=== PATIENT | female | born 1990 | race Caucasian/White ===

== ENCOUNTER 2020-09-29 19:14 | Inpatient (IN) | payer OTHER ==
[2020-09-29 20:02] LABS: APPEARANCE,URINE CLEAR; BILIRUBIN,URINE NEGATIVE (NEGATIVE); COLOR,URINE STRAW; GLUCOSE, URINE 150 mg/dL (NEGATIVE); KETONES,URINE NEGATIVE (NEGATIVE); LEUKOCYTE ESTERASE,URINE NEGATIVE (NEGATIVE); NITRITE,URINE NEGATIVE (NEGATIVE); PROTEIN,URINE NEGATIVE (NEGATIVE); URINE SPECIFIC GRAVITY 1.008; UROBILINOGEN,URINE NEGATIVE mg/dL (<2.0)
[2020-09-29] MEDS ORDERED: RINGERS SOLUTION,LACTATED 500 ML IV ONE (20:17)
[2020-09-29 20:45] LABS: URINE AMPHETAMINES SCREEN NEGATIVE; URINE BARBITURATES SCREEN NEGATIVE; URINE BENZODIAZEPINES SCREEN NEGATIVE; URINE COCAINE SCREEN NEGATIVE; URINE MARIJUANA (THC) SCREEN NEGATIVE; URINE METHADONE SCREEN NEGATIVE; URINE PHENCYCLIDINE SCREEN NEGATIVE
[2020-09-29 20:46] LABS: ABSOLUTE EOSINOPHILS # (AUTO) 0.1 10^3/uL (0.0-0.6); ABSOLUTE LYMPHOCYTES (AUTO) 1.8 10^3/uL (0.5-4.7); ABSOLUTE MONOCYTES (AUTO) 0.8 10^3/uL (0.1-1.4); ABSOLUTE NEUT (AUTO) 7.5 10^3/uL (1.7-8.2); BASOPHILS % (AUTO) 0.2 % (0-2); EOSINOPHILS % (AUTO) 0.5 % (0-6); HEMATOCRIT 40.6 % (36.0-47.0); HEMOGLOBIN 13.5 g/dL (12.0-15.5); LYMPHOCYTES % (AUTO) 17.9 % (13-45); MEAN CORPUSCULAR HEMOGLOBIN 28.3 pg (27.0-33.4); MEAN CORPUSCULAR HGB CONC 33.4 g/dL (32.0-36.0); MEAN CORPUSCULAR VOLUME 85 fl (80-97); MONOCYTES % (AUTO) 7.6 % (3-13); PLATELET COUNT 162 10^3/uL (150-450); RED BLOOD COUNT 4.78 10^6/uL (3.72-5.28); RED CELL DISTRIBUTION WIDTH 13.8 % (11.5-14.0); SEGMENTED NEUTROPHILS % (AUTO) 73.8 % (42-78); TOTAL CELLS COUNTED % (AUTO) 100 %; WHITE BLOOD COUNT 10.2 10^3/uL (4.0-10.5)
[2020-09-29] MEDS ORDERED: MISOPROSTOL 0.2 MG TABLET ONE (21:17)
[2020-09-29] MEDS ORDERED: OXYTOCIN 10 UNIT/ML VIAL ONE (21:17)
[2020-09-29] MEDS ORDERED: OXYTOCIN/0.9 % SODIUM CHLORIDE 30 UNIT/500 ML RTUINJ ONE (21:18)
[2020-09-29] MEDS ORDERED: LIDOCAINE 1% INJ-PF (10 MG/ML) 30 ML SDV ONE (21:18)
[2020-09-29] MEDS: RINGERS SOLUTION,LACTATED 1,000 ML IV PRN (21:42)
[2020-09-30] MEDS ORDERED: NALBUPHINE HCL INJ 10 MG/1 ML AMPULE IV ONE (00:24)
[2020-09-30] MEDS ORDERED: PROMETHAZINE HCL INJ 25 MG/1 ML VIAL IV ONE (00:24)
[2020-09-30] MEDS ORDERED: NALBUPHINE HCL INJ 10 MG/1 ML AMPULE ONE (00:25)
[2020-09-30] MEDS ORDERED: PROMETHAZINE HCL INJ 25 MG/1 ML VIAL ONE (00:25)
[2020-09-30] MEDS: RINGERS SOLUTION,LACTATED 1,000 ML IV PRN ×2 (00:36→03:29)
[2020-09-30] MEDS ORDERED: FENTANYL/BUPIVACAINE/NS/PF 300 MCG/150 ML RTUINJ EPI ONE (03:14)
[2020-09-30] MEDS ORDERED: ROPIVACAINE HCL 0.2% INJ/PF (2 MG/ML) 20 ML SDV ONE (03:14)
[2020-09-30] MEDS ORDERED: EPHEDRINE SULFATE INJ 50 MG/1 ML AMPULE ONE (03:14)
[2020-09-30] MEDS ORDERED: CALCIUM CARBONATE 500 MG TAB.CHEW PO ONE (05:26)
[2020-09-30] MEDS ORDERED: OXYTOCIN/0.9 % SODIUM CHLORIDE 30 UNIT/500 ML RTUINJ IV PRN ×2 (06:00→10:09)
--- NOTE | 2020-09-30 06:57 | Admission Physical ---
Datetime Report Generated by CPN: 09/30/2020 06:57 CURRENT ADMISSION Chief Complaint: Uterine Contractions; Suspected Ruptured Membranes Indication for Induction: Not Applicable Admit Impression : Term, Intrauterine ; Active Labor; Ruptured Membranes Admit Plan: Admit to Unit; Initiate Labor Augmentation Protocol ALLERGIES Medication Allergies: No Medication Allergies: No Known Allergies (09/29/2020) Latex: No Latex Allergies OBSTETRICAL HISTORY EDC: 09/29/2020 00:00 : 1 Para: 0 Term: 0 Gestational Diabetes: No Rh Sensitization: No Incompetent Cervix: No AMADOR: No Infertility: No ART Treatment: No Uterine Anomaly: No IUGR: No Hx Previous C/S: No Macrosomia: No Hx Loss/Stillborn: No PIH: No Hx : No Placenta Previa/Abruption: No Depression/PP Depression: No PTL/PROM: No Post Hemorrhage: No Current Procedures: Ultrasound SEE RECORDS Alcohol: No Marijuana : No Cocaine: No Other Illicit Drugs: No Cigarettes: Former Smoker. 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 Surgery: No Heart Disease: No Hosp/Surgery: No Autoimmune Disorder: No Anesthetic Complications: No Kidney Disease: No Abnormal Pap Smear: No Neuro/Epilepsy: Yes Psychiatric Disorders: No Other Medical Diseases: No Hepatitis/Liver Disease: No Significant Family History: No Varicosities/Phlebitis: No Trauma/Violence : No Thyroid Dysfunction: No Medical History Comments: Migraine headaches INFECTIOUS HISTORY Gonorrhea: No Genital Herpes: No Chlamydia: No Tuberculosis: No Syphilis: No Hepatitis: No HIV/AIDS Exposure: No Rash or Viral Illness: No HPV: No PHYSICAL EXAM General: Normal HEENT: Normal Neurologic: Normal Thyroid: Normal Heart: Normal Lungs: Normal Breast: Normal Back: Normal Abdomen: Normal Genitourinary Exam: Normal Extremities: Normal DTRs: Normal Pelvic Type: Adequate Vital Signs: Reviewed VAGINAL EXAM Dilatation: 6 Effacement: 90 Station: 0 MEMBRANES Pooling: Positive Membranes: Ruptured Amniotic Fluid Color: Clear FETUS A EGA: 40.1 Monitoring: External US FHR- Baseline: 130 Variability: Moderate 6-25bpm Accelerations: 15X15 Decelerations: None FHR Category: Category I Estimated Weight (gm): 3500 Presentation: Vertex PLANS FOR LABOR AND DELIVERY Labor and Delivery: None Pain Management: Medications Feeding Preference: Breast Circumcision: Yes INFORMED CONSENT Signature: with User ID: [email or web address]
--- NOTE | 2020-09-30 09:03 | L&D Progress Notes ---
PROGRESS NOTES Datetime Report Generated by CPN: 09/30/2020 09:03 PROGRESS NOTE Comment: pushing with each contraction,seeing head with pushing, mod variability, variable decels with uc's, uc's q 4 min, Piyocin on 2 mu, Dr. Luu on unit and aware of status VAGINAL EXAM Dilatation: 6 Effacement: 90 Station: 0 LAST VAGINAL EXAM-NURSING Nursing Exam Dilitation: 10.0 Nursing Exam Effacement: 100 Nursing Exam Station: 2 Nursing Exam Contractions: irregular MEMBRANES Pooling: Positive Membranes: Ruptured Amniotic Fluid Color: Clear FETUS A : 40.1 Estimated Weight (gm): 3500 Presentation: Vertex SIGNATURE SIGNATURE: 10,[id number] Assignment: Apolonia Luu MD Signature: with User ID: Louie : with User ID: Louie
[2020-09-30] MEDS ORDERED: BENZOCAINE/MENTHOL AEROSOL SPRAY 56 ML TOP PRN (10:09)
[2020-09-30] MEDS ORDERED: MAGNESIUM HYDROXIDE SUSP 30 ML UDCUP PO PRN (10:09)
[2020-09-30] MEDS ORDERED: ACETAMINOPHEN WITH CODEINE #3 TABLET PO PRN (10:09)
[2020-09-30] MEDS ORDERED: DIBUCAINE 1% OINTMENT 28 GM TP PRN (10:09)
[2020-09-30] MEDS ORDERED: ACETAMINOPHEN 325 MG TABLET PO PRN (10:09)
[2020-09-30] MEDS ORDERED: DIPHENHYDRAMINE HCL 25 MG CAPSULE PO PRN (10:09)
[2020-09-30] MEDS ORDERED: GLYCERIN/WITCH HAZEL LEAF 1 EACH MED..WIPE TP PRN (10:09)
[2020-09-30] MEDS ORDERED: MAG HYDROX/AL HYDROX/SIMETH SUSP 30 ML UDCUP PO PRN (10:09)
[2020-09-30] MEDS ORDERED: FAMOTIDINE 20 MG TABLET PO PRN (10:09)
[2020-09-30] MEDS ORDERED: ACETAMINOPHEN 650 MG SUPP.RECT PR PRN (10:09)
[2020-09-30] MEDS ORDERED: DIPH/PERTUSS(ACELL)/TETANUS VAC/PF 0.5 ML SYR (>=10YO) IM PRN (10:09)
[2020-09-30] MEDS ORDERED: PSEUDOEPHEDRINE HCL 30 MG TABLET PO PRN (10:09)
[2020-09-30] MEDS ORDERED: MEASLES,MUMPS&RUBELLA VACC/PF 0.5 ML VIAL SUBCUT PRN (10:09)
[2020-09-30] MEDS ORDERED: VARICELLA VACC/PF (1350 UNIT/0.5 ML) 0.5 ML VIAL SUBCUT PRN (10:09)
--- NOTE | 2020-09-30 11:03 | Birth Certificate Data ---
Cert Data Datetime Report Generated by CPN: 09/30/2020 11:02 CERTIFICATE DATA 47a. Care: Yes (09/29/2020 19:58:Cyndi Brasher RN) 47b. Date of First Visit: 03/13/2020 00:00 (09/29/2020 19:58:Cyndi Brasher RN) 47c. Date of Last Visit: 09/25/2019 00:00 (09/29/2020 19:58:Cyndi Brasher RN) 47d. Number of Visits: 10 (09/29/2020 19:58:Cyndi Brasher RN) 48a. Number of Prev Live Births: 0 (09/29/2020 19:58:SANDRA Reese) 48e. Losses: 0 (09/29/2020 19:58:SANDRA Reese) RISK FACTORS IN THIS 49a. Diabetes: No (09/29/2020 19:58:Cyndi Brasher RN) 49b. Hypertension: No (09/29/2020 19:58:Cyndi Brasher RN) 49d. Stillborns: No (09/29/2020 19:58:Cyndi Brasher RN) 49d. IUGR: No (09/29/2020 19:58:Cyndi Brasher RN) 49e. Infertility Treatment: No (09/29/2020 19:58:Cyndi Brasher RN) Mother's Height 50b. Height Inches: 63 (09/30/2020 08:09:QS system process) Mother's Weight 51a. Pre- Weight (lbs): 129 (09/29/2020 19:58:SANDRA Reese) 51b. Weight at Delivery (lbs): 163 (09/30/2020 08:09:QS system process) 52. Dt Last Normal Menses Began: 12/18/2019 00:00 (09/29/2020 19:58:SANDRA Reese) Infections Present/Treated 53a. Gonorrhea: No (09/29/2020 19:58:Cyndi Brasher RN) Results this Hospital Visit : Negative (09/29/2020 19:58:SANDRA Reese) 53b. Syphilis: No (09/29/2020 19:58:Cyndi Brasher RN) 53c. Chlamydia: No (09/29/2020 19:58:Cyndi Brasher RN) Results this Hospital Visit: Negative (09/29/2020 19:58:SANDRA Reese) 53d. Hepatitis B: No (09/29/2020 19:58:Cyndi Brasher RN) Results this Hospital Visit: Negative (09/29/2020 19:58:Cyndi Brasher RN) 53e. Hepatitis C: Negative (09/29/2020 19:58:SANDRA Reese) 53h. Mother Tested for HBsAG: Yes (09/29/2020 19:58:SANDRA Reese) 53i. Date Tested: 03/13/2020 00:00 (09/29/2020 19:58:SANDRA Reese) 53j. Test Result: Negative (09/29/2020 19:58:Cyndi Brasher RN) Obstetric Procedures 54a, b, c. Obstetric Procedures: Ultrasound (09/29/2020 19:58:Cyndi Brasher RN) Cigarette Smoking Cigarette Smoking: Former Smoker. [id number] (09/29/2020 19:58:Cyndi Brasher RN) 55a. 3 Months Before Preg - Ci (09/29/2020 19:58:Cyndi Brasher RN) 55b. 1st Trimester of Preg- Ci (09/29/2020 19:58:Cyndi Brasher RN) 55c. 2nd Trimester of Preg- Ci (09/29/2020 19:58:Cyndi Brasher RN) 55d. 3rd Trimester of Preg- Ci (09/29/2020 19:58:Cyndi Brasher RN) Onset of Labor 56a. PROM >12 Hrs: 15.17 (09/29/2020 20:25:QS system process) 56b. Precipitous Labor <3 Hrs: 15 (09/29/2020 19:58:QS system process) 56c. Prolonged Labor > 20 Hrs: 15 (09/29/2020 19:58:QS system process) 57a. Induction of Labor: Augmentation (09/29/2020 19:58:Lupe Quintero RN) 57c. Non-Vertex Presentation A: Vertex (09/29/2020 19:58:Lupe Quintero RN) 57d. Steroids - Lung Mat: None (09/29/2020 19:58:Lupe Quintero RN) 57d. Steroids - Lung Mat: Not Applicable (09/29/2020 19:58:Lupe Quintero RN) 57f. Mat [place] or Temp >100.4: 99.4 (09/29/2020 19:58:Lupe Quintero RN) 57g. Moderate/Heavy Meconium: Clear (09/29/2020 20:25:Cyndi Brasher RN) 57h. Intolerance of Labor: N/A (09/29/2020 19:58:Stefany Lugo RN) : N/A (09/29/2020 19:58:Stefany Lugo RN) 57i. Epidural/Spinal Anesthesia: Epidural (09/29/2020 19:58:Lupe Wilkinsonustchristine, RN) Method of Delivery 58a. Forceps - Unsuccessful A: N/A (09/29/2020 19:58:Lupe Quintero, RN) 58b. Vacuum - Unsuccessful A: N/A (09/29/2020 19:58:Lupe Wilkinsonustchristine, RN) 58c. Presentation at 58c. Presentation at - A : Vertex (09/29/2020 19:58:Lupe Wilkinsonustchristine, RN) 58c. Presentation at - A : N/A (09/29/2020 19:58:Lupe Wilkinsonustchristine, RN) 58c. Presentation at - A : Cephalic (09/29/2020 19:58:Lupe Wilkinsonustchristine, RN) Final Route and Method of Del 58d. Baby A Route/Delivery: Vaginal (09/30/2020 09:40:Lupe Quintero RN) 58e. Trial of Labor Attempted: No (09/29/2020 19:58:Lupe Quintero RN) 58e. Trial of Labor Attempted A: N/A (09/29/2020 19:58:Lupe Quintero RN) 58e. Trial of Labor Attempted B: N/A (09/29/2020 19:58:Lupe Quintero RN) Maternal Morbidity 59b. 3rd or 4th Degree Lacs: Vaginal; Periurethral (09/29/2020 19:58:Lupe CJ Quintero) Birthweight Baby A: 3610 (09/29/2020 19:58:Lupe Quintero RN) 60a. Pounds : 7 (09/29/2020 19:58:QS system process) 60b. Ounces: 15 (09/29/2020 19:58:QS system process) 61. GA at Delivery Baby A: 40.1 (09/29/2020 19:58:Stefany Lugo RN) : Full Term- 39- 40.6 Weeks (09/29/2020 19:58:QS system process) 62a. 5 Minute Baby A: 9 (09/29/2020 19:58:QS system process)
--- NOTE | 2020-09-30 11:03 | Delivery Summary ---
Del Sum A-C Datetime Report Generated by CPN: 09/30/2020 11:02 DELIVERY PERSONNEL DELIVERY PERSONNEL: [id number] Nurse Director Of Scientific Research Certified:: Michelle Hilliard CNM Labor and Delivery Nurse:: Lupe Quintero RN Nursery Nurse:: Naina Lugo RN Insurance And Benefits Clerk/COPY LATHE OPERATOR: Shelley [facility] SUPERVISOR INTELLIGENCE ANALYST Insurance And Benefits Clerk/COPY LATHE OPERATOR: Clover Gunderson, SUPERVISOR INTELLIGENCE ANALYST MATERNAL INFORMATION Delivery Anesthesia: Epidural Medications After Delivery: Pitocin 30 Units in 500ml NS/D5W Delivery QBL: 300 Maternal Complications: None Provider Comments: bladder emptied 400 cc, 1 push and delivered live male infant from OA position, was trying to rotate to BOUHCRA, placed on mothers abd, cord clamped and cut by FOB after 2 minutes, cord blood obtained, spont delivery of grossly normal placenta, rt periurethral and vaginal laceration repaired without difficulty, FFFM, massage, Pitocin baby and mom remains in recovery in stable condition with FOB, skin to skin, plans to breastfeed LABOR SUMMARY EDC: 09/29/2020 00:00 No. Babies in Womb: 1 Attempted: No Labor Anesthesia: Epidural LABOR INFORMATION Reason for Induction: Not Applicable Onset of Labor: 09/29/2020 18:45 Complete Dilatation: 09/30/2020 07:15 Oxytocin: Augmentation Group B Beta Strep: negative Antibiotics # of Doses: n/a Name of Antibiotic Given: n/a Steroids Given: None Reason Steroids Not Administered: Not Applicable MEMBRANES Membranes Rupture Method: Spontaneous Rupture of Membranes: 09/29/2020 18:30 Length of Rupture (hr): 15.17 Amniotic Fluid Color: Clear Amniotic Fluid Amount: Moderate Amniotic Fluid Odor: Normal STAGES OF LABOR Stage 1 hr: 12 Stage 1 min: 30 Stage 2 hr: 2 Stage 2 min: 25 Stage 3 hr: 0 Stage 3 min: 5 Total Time in Labor hr: 15 Total Time in Labor min: 0 VAGINAL DELIVERY Episiotomy: None Laceration #1: Vaginal; Periurethral Laceration Extension #1: First Degree Laceration Repair: Yes Laceration Repair Note: 2-0 and 3-0 chromic without difficulty Sponge Count Correct: Yes Sharps Count Correct: Yes CSECTION DELIVERY Primary Indication: N/A Secondary Indication: N/A CSection Incidence: N/A Labor: N/A Elective: N/A CSection Incision: N/A BABY A INFORMATION Delivery Date/Time: 09/30/2020 09:40 Method of Delivery: Vaginal Nurse Controlled Delivery: No Born in Route : No : N/A Forceps: N/A Vacuum Extraction: N/A Shoulder Dystocia : No PRESENTATION/POSITION BABY A Presentation: Cephalic Cephalic Presentation: Vertex Breech Presentation: N/A PLACENTA INFORMATION BABY A Placenta Delivery Time : 09/30/2020 09:45 Placenta Method of Delivery: Spontaneous Placenta Status: Delivered SCORES BABY A Heart Rate 1 min: >100 bpm Resp Effort 1 min: Good Cry Reflex Irritability 1 min: Cough or Sneeze or Pulls Away Muscle Tone 1 min: Active Motion Color 1 min: Blue/Pale Resuscitation Effort 1 min: Tactile Stimulation SCORE 1 MIN: 8 Heart Rate 5 min: >100 bpm Resp Effort 5 min: Good Cry Reflex Irritability 5 min: Cough or Sneeze or Pulls Away Muscle Tone 5 min: Active Motion Color 5 min: Body Luna, Extremities Blue Resuscitation Effort 5 min: Tactile Stimulation SCORE 5 MIN: 9 INFORMATION BABY A Gestational Age at Delivery: 40.1 Gestational Status: Full Term- 39- 40.6 Weeks Infant Outcome : Liveborn Infant Condition : Stable Sex: Male IDENTIFICATION BABY A Verification Date/Time: 09/30/2020 09:51 ID Band Number: [id number] Mother's Name Verified: Yes RN Verifying : AFeuston, RN Additional Verifying Personnel: DMu Gunderson, SUPERVISOR INTELLIGENCE ANALYST WEIGHT/LENGTH BABY A Infant Birthweight (gm): 3610 Infant Weight (lb): 7 Infant Weight (oz): 15 Infant Length (in): 21.75 Infant Length (cm): 55.25 CORD INFORMATION BABY A No. Cord Vessels: 3 Nuchal Cord : N/A Cord Blood Taken: Yes-For Eval (Mom's Blood Type - or O+) Infant Suction: None ASSESSMENT BABY A Complications: Multiple Variable Decels Skin to Skin: Yes Skin to Skin Time (min): 60 Infant Care By: Naina Lugo RN Transferred To: Remains with Mother BABY B INFORMATION : N/A
[2020-09-30] MEDS: IBUPROFEN 800 MG TABLET PO SCH ×2 (14:05→21:15)
[2020-09-30] MEDS: DOCUSATE SODIUM 100 MG CAPSULE PO SCH (17:25)
[2020-09-30] MEDS: FERROUS SULFATE 325 MG TABLET PO SCH (17:25)
[2020-10-01] MEDS: ACETAMINOPHEN WITH CODEINE #3 TABLET PO PRN ×2 (04:54→10:16)
[2020-10-01] MEDS: IBUPROFEN 800 MG TABLET PO SCH ×3 (06:11→22:14)
[2020-10-01 07:27] LABS: HEMATOCRIT 34.7 % (36.0-47.0); MEAN CORPUSCULAR HEMOGLOBIN 28.1 pg (27.0-33.4); MEAN CORPUSCULAR HGB CONC 32.8 g/dL (32.0-36.0); MEAN CORPUSCULAR VOLUME 86 fl (80-97); PLATELET COUNT 143 10^3/uL (150-450); RED BLOOD COUNT 4.05 10^6/uL (3.72-5.28); RED CELL DISTRIBUTION WIDTH 14.3 % (11.5-14.0); WHITE BLOOD COUNT 13.5 10^3/uL (4.0-10.5)
[2020-10-01 07:34] LABS: HEMOGLOBIN 11.4 g/dL (12.0-15.5)
[2020-10-01] MEDS: PRENATAL VITAMIN W DHA CAPSULE PO SCH (10:13)
[2020-10-01] MEDS: SENNOSIDES/DOCUSATE 8.6-50 MG 1 EACH TABLET PO SCH (10:13)
[2020-10-01] MEDS: FERROUS SULFATE 325 MG TABLET PO SCH ×2 (10:13→17:54)
[2020-10-01] MEDS: DOCUSATE SODIUM 100 MG CAPSULE PO SCH ×2 (10:13→17:54)
--- NOTE | 2020-10-01 10:56 | PDOC PROGRESS REPORT ---
Subjective-OB Progress Note for:: 10/01/20 - PP Day #1, doing well, UOB, voiding, Physical Exam (OB) Vital Signs: Temp Pulse Resp BP Pulse Ox 97.7 F 79 16 103/67 97 09/30/20 22:00 09/30/20 20:35 09/30/20 20:35 09/30/20 20:35 09/30/20 20:35 Intake & Output 09/30/20 10/01/20 10/02/20 06:59 06:59 06:59 Intake Total 723 1680 400 Balance 723 1680 400 Weight 73.8 kg - General General Appearance: Appears well, Alert In distress: None - PIH/Pre-Eclampsia Headache: Absent Epigastric Pain: No Visual Changes: No - Maternal Morbidity 59. Maternal Morbidity (serious complications experinced by the mother associated with labor and delivery: None of the above - Lochia Lochia Amount: Small 10-25 ml Lochia Color: Rubra/Red - Abdomen Description: Soft Hernia Present: No Fundal Description: Firm, Midline Fundal Height: u/u - u/2 - Respiratory Respiratory Status: No respiratory distress - Abdominal Inspection: Normal Distension: No distension - Genitourinary Genitourinary Note: voiding - Extremities Upper extremity: Normal inspection Lower extremities: Edema - Neurological Cognition: Normal Orientation: AAOx4 - Psychological Associated symptoms: Normal affect, Normal mood - Skin Skin Temperature: Warm Skin Moisture: Dry Objective-Diagnostic Laboratory: 10/01/20 06:38 10/01/20 06:38 WBC 13.5 H RBC 4.05 Hgb 11.4 L D Hct 34.7 L MCV 86 MCH 28.1 MCHC 32.8 RDW 14.3 H Plt Count 143 L Assessment and Plan(PN) - Assessment and Plan (1) Obstetric vaginal laceration, delivered, current hospitalization Is this a current diagnosis for this admission?: Yes (2) Vaginal delivery Is this a current diagnosis for this admission?: Yes - Time Spent with Patient Time with patient: Less than 15 minutes Medications reviewed and adjusted accordingly: Yes - Disposition Anticipated Discharge Disposition: Home, Self Care Anticipated Discharge Timeframe: within 24 hours
[2020-10-02] MEDS: IBUPROFEN 800 MG TABLET PO SCH ×2 (06:03→15:21)
--- NOTE | 2020-10-02 09:15 | PDOC DISCHARGE SUMMARY ---
Impression - Admit/DC Date/PCP Admission Date/Primary Care Provider: 09/29/20 20:21 NACHO ANDERSON MD Discharge Date: 10/02/20 - Discharge Diagnosis (1) Obstetric vaginal laceration, delivered, current hospitalization Is this a current diagnosis for this admission?: Yes (2) Vaginal delivery Is this a current diagnosis for this admission?: Yes - Additional Information Resuscitation Status: Full Code Discharge Diet: Regular Discharge Activity: Balance Activity w/Rest, Pelvic Rest Referrals: NACHO ANDERSON MD [Primary Care Provider] - Prescriptions: Ibuprofen [Motrin 800 mg Tablet] 800 mg PO Q8HP PRN #60 tablet PRN Reason: Home Medications: Prenat 115/Iron Fum/Folic/Dss [ 19 Tablet] 1 tab PO DAILY 09/29/20 Ibuprofen [Motrin 800 mg Tablet] 800 mg PO Q8HP PRN #60 tablet 10/02/20 HPI Gestational Age: 40.1 Reason(s) for Admission: Onset of Labor Procedures: NST Intrapartum Procedure(s): Spontaneous Vaginal Delivery Complication(s): Laceration-Vaginal, Laceration-Periurethral Laceration-Degree: 1st Hospital Course 59. Maternal Morbidity (serious complications experinced by the mother associated with labor and delivery: None of the above Results Laboratory Results: WBC 13.5 10^3/uL (4.0-10.5) H 10/01/20 06:38 RBC 4.05 10^6/uL (3.72-5.28) 10/01/20 06:38 Hgb 11.4 g/dL (12.0-15.5) L D 10/01/20 06:38 Hct 34.7 % (36.0-47.0) L 10/01/20 06:38 MCV 86 fl (80-97) 10/01/20 06:38 MCH 28.1 pg (27.0-33.4) 10/01/20 06:38 MCHC 32.8 g/dL (32.0-36.0) 10/01/20 06:38 RDW 14.3 % (11.5-14.0) H 10/01/20 06:38 Plt Count 143 10^3/uL (150-450) L 10/01/20 06:38 Lymph % (Auto) 17.9 % (13-45) 09/29/20 20:29 [place] % (Auto) 7.6 % (3-13) 09/29/20 20:29 Eos % (Auto) 0.5 % (0-6) 09/29/20 20:29 Baso % (Auto) 0.2 % (0-2) 09/29/20 20:29 Absolute Neuts (auto) 7.5 10^3/uL (1.7-8.2) 09/29/20 20:29 Absolute Lymphs (auto) 1.8 10^3/uL (0.5-4.7) 09/29/20 20:29 Absolute Monos (auto) 0.8 10^3/uL (0.1-1.4) 09/29/20 20:29 Absolute Eos (auto) 0.1 10^3/uL (0.0-0.6) 09/29/20 20:29 Absolute Basos (auto) 0.0 10^3/uL (0.0-0.2) 09/29/20 20:29 Seg Neutrophils % 73.8 % (42-78) 09/29/20 20:29 Urine Color STRAW 09/29/20 19:35 Urine Appearance CLEAR 09/29/20 19:35 Urine pH 7.0 (5.0-9.0) 09/29/20 19:35 Ur Specific [place] 1.008 09/29/20 19:35 Urine Protein NEGATIVE mg/dL (NEGATIVE) 09/29/20 19:35 Urine Glucose (UA) 150 mg/dL (NEGATIVE) H 09/29/20 19:35 Urine Ketones NEGATIVE mg/dL (NEGATIVE) 09/29/20 19:35 Urine Blood SMALL (NEGATIVE) H 09/29/20 19:35 Urine Nitrite NEGATIVE (NEGATIVE) 09/29/20 19:35 Urine Bilirubin NEGATIVE (NEGATIVE) 09/29/20 19:35 Urine Urobilinogen NEGATIVE mg/dL (<2.0) 09/29/20 19:35 Ur Leukocyte Esterase NEGATIVE (NEGATIVE) 09/29/20 19:35 Urine Ascorbic Acid NEGATIVE (NEGATIVE) 09/29/20 19:35 Membranes Rupture POSITIVE (NEGATIVE) H 09/29/20 19:40 Urine Opiates Screen NEGATIVE 09/29/20 19:35 Urine Methadone Screen NEGATIVE 01/17/21 19:35 Ur Barbiturates Screen NEGATIVE 09/29/20 19:35 Ur Phencyclidine Scrn NEGATIVE 09/29/20 19:35 Ur Amphetamines Screen NEGATIVE 09/29/20 19:35 U Benzodiazepines Scrn NEGATIVE 09/29/20 19:35 Urine Cocaine Screen NEGATIVE 09/29/20 19:35 U Marijuana (THC) Screen NEGATIVE 09/29/20 19:35 RPR NONREACTIVE (NONREACTIVE) 09/29/20 20:29 Blood Type O POSITIVE 09/29/20 20:29 Antibody Screen NEGATIVE 09/29/20 20:29 Plan Plan of Treatment: f/u at [facility] 4 wks Time Spent: Less than 30 Minutes
[2020-10-02] MEDS: DOCUSATE SODIUM 100 MG CAPSULE PO SCH (10:41)
[2020-10-02] MEDS: SENNOSIDES/DOCUSATE 8.6-50 MG 1 EACH TABLET PO SCH (10:41)
[2020-10-02] MEDS: FERROUS SULFATE 325 MG TABLET PO SCH (10:41)
[2020-10-02] MEDS: PRENATAL VITAMIN W DHA CAPSULE PO SCH (12:43)
[2020-10-02 12:56] VITALS: BP 110/82
== END 2020-10-02 16:53 | disposition home or self-care (01) | DRG 807 ==
LOC: LC 19:14 → LR 20:21 → 2S 09-30 11:57
PROVIDERS: ADMIT Obstetrics & Gynecology; ATTEND Obstetrics & Gynecology
PROC: 10E0XZZ Delivery of Products of Conception, External Approach (ICD-10-PCS; principal; 2020-09-30)
PROC: 0UQMXZZ Repair Vulva, External Approach (ICD-10-PCS; 2020-09-30)
DX: O48.0 Post-term pregnancy (principal); Z37.0 Single live birth; O71.82 Other specified trauma to perineum and vulva; Z20.822 Contact with and (suspected) exposure to COVID-19; Z87.891 Personal history of nicotine dependence; Z3A.40 40 weeks gestation of pregnancy
CPT/HCPCS: 1967; 36415; 80307; 81005; 84112; 85025; 85027; 86592; 86850; 86900; 86901; 94760; J2300; J2550; J2590; J2795; J3010; J3490